=== PATIENT | female | born 1960 | race African-American/Black ===

== ENCOUNTER 2017-07-13 13:40 | Emergency (ER) | payer OTHER ==
[~2017-07-13] VITALS: Ht 160 cm; Wt 72.6 kg
[~2017-07-13 13:40] MED LIST: ACID CONTROL20 MG PO; ACIDOPHILUS1 EAC3 PO; APAP500; CARAFATE 1 GM TA1 G1 PO; CEFTIN 250 MG250 MG PO; CELEXA40 MG PO; CITRATE OF MAG296 ML PO; CLEOCIN HCL300 MG PO; COLACE100 MG PO; CYCLOBENZAPRINE10 MG PO; CYCLOBENZAPRINE5 MG PO; DARVOCET-N 1001 EAC1 PO; DEMADEX20 MG PO; DEPAKOTE 250MG250 M1 PO; DEPAKOTE ER250 MG PO; DEPAKOTE ER500 MG PO; DOXYCYCLINE 10100 M1 PO; DYAZIDE 37.5-21 EACH PO; EUCERIN CREME57 GM; HYDROCERIN CREA1 JAR TOP; HYDROCODON-ACE1 EAC7 PO; ISOSORBIDE MONO10 MG PO; ISOSORBIDE MONO30 M1 PO; LASIX 40 MG TAB40 M2 PO; LEVAQUIN 500 M500 M2 PO; LEVEMIR SUBQ; LIPITOR 10 MG10 M1 PO; LOPRESSOR 50 MG50 M1 PO; LOPRESSOR25 PO; LORTAB 5 MG/5001 TA1 PO; MULTI VITAMIN1 EACH PO; MULTIVITAMINS1 EAC7 PO; MUSCLE RUB90 GM; NEURONTIN 300300 M1 PO; NIZORAL120 ML TP; NORCO 5-325 TA1 EACH; NOVOLIN 70100 UNIT/1; NOVOLIN 70100 UNIT/1 SUBQ; NOVOLIN 70100 UNIT/5 IJ; NOVOLOG100 UNIT/1 SUBQ; OMEPRAZOLE 20 M20 MG PO; OMEPRAZOLE20 M2 PO; ONDANSETRON HCL4 M2 PO; POTASSIUM20 PO; PREVACID30 M1 PO; PRO STAT PO; PRO-STAT LIQUID30 ML PO; ROBITUSSIN100 MG/5 M PO; SANTYL OINTMENT30 G1 TP; SEROQUEL 100 M100 MG PO; SEROQUEL 50 MG50 M1 NG; SEROQUEL XR 30300 M1 PO; SEROQUEL XR200 MG PO; SIMVASTATIN20 MG PO; TYLENOL325 MG PO; VESICARE 5 MG TA5 M1 PO; VISTARIL 25 MG25 M1; VISTARIL 25 MG25 M1 PO; VITAMIN C + RO500 MG PO; VITAMINC500 PO; XARELTO10 MG PO; XARELTO20 MG; XARELTO20 MG PO; ZOCOR 10 MG TAB10 MG PO; [UNRECOGNIZED DRUG - OTHER]
[2017-07-13 17:02] LABS: ABSOLUTE NEUTROPHILS 7.4 thou/uL (1.4-8.2); EOSINOPHILS 1.8 % (0.0-3.0); HEMATOCRIT 39.1 % (37.0-47.0); HEMOGLOBIN 12.9 gm/dL (12.0-15.0); LYMPHOCYTES 27.3 % (24.0-44.0); MCH 27.8 pg (26.0-34.0); MCHC 32.9 g/dL (28.0-37.0); MCV 84.4 fL (80.0-100.0); MONOCYTES 9.5 % (1.0-8.0); PLATELET COUNT 278 thou/uL (150-400); POLYS 60.4 % (36.0-66.0); RBC 4.63 mil/uL (4.20-5.00); RDW 15.4 % (10.5-14.5); WBC 12.3 thou/uL (4.0-11.0)
[2017-07-13 17:20] LABS: CALCIUM 9.3 mg/dL (8.5-10.1); CREATININE 0.9 mg/dL (0.6-1.0); POTASSIUM 4.8 mmol/L (3.5-5.1)
[2017-07-13 17:26] LABS: ALBUMIN 3.2 g/dL (3.4-5.0); TOTAL BILIRUBIN 0.4 mg/dL (<0.1-1.0); TOTAL PROTEIN 7.9 g/dL (6.4-8.2)
[2017-07-13] MEDS ORDERED: MIRALAX17 GM PO (18:35)
[2017-07-13] MEDS ORDERED: VITAMIN A & D OI5 GM TOP (19:19)
[2017-07-13] MEDS ORDERED: NOVOFINE AUTOC1 EACH SUBQ (19:22)
[2017-07-13] MEDS ORDERED: CEPACOL SORE T1 EAC8 PO (19:23)
[2017-07-13] MEDS ORDERED: PROTONIX40 M1 PO (19:25)
[2017-07-13] MEDS ORDERED: SENNA LAX8.6 MG PO (19:26)
[2017-07-13] MEDS ORDERED: SEROQUEL 50 MG50 MG PO (19:28)
[2017-07-13 20:35] VITALS: BP 107/81
== END 2017-07-13 20:35 | disposition home or self-care (01) ==
LOC: ER 13:40
PROVIDERS: Physician Assistant
DX: E11.621 Type 2 diabetes mellitus with foot ulcer (principal); L89.523 Pressure ulcer of left ankle, stage 3; Z86.718 Personal history of other venous thrombosis and embolism; J44.9 Chronic obstructive pulmonary disease, unspecified; K21.9 Gastro-esophageal reflux disease without esophagitis; E78.5 Hyperlipidemia, unspecified; M19.90 Unspecified osteoarthritis, unspecified site; Z88.5 Allergy status to narcotic agent

== ENCOUNTER → 2020-05-16 | Outpatient (CLI) | payer OTHER ==
[~2020-05-16] MED LIST changes: +CEPACOL SORE T1 EAC8 PO; +MIRALAX17 GM PO; +NOVOFINE AUTOC1 EACH SUBQ; +PROTONIX40 M1 PO; +SENNA LAX8.6 MG PO; +SEROQUEL 50 MG50 MG PO; +VITAMIN A & D OI5 GM TOP
== END ==
LOC: RAD 10:16
PROVIDERS: ATTEND Emergency Medicine
DX: N64.4 Mastodynia (principal)